=== PATIENT | female | born 1950 | race Caucasian/White ===

== ENCOUNTER → 2023-07-05 17:31 | Outpatient (REF) | payer MEDICARE, SELFPAY | LOC: PAVMRI 17:31 | PROVIDERS: ATTENDING PHYSICIAN Pain Medicine Interventional Pain Medicine; FAMILY PHYSICIAN Family Medicine | DX: M54.16 Radiculopathy, lumbar region (principal) | CPT/HCPCS: 72148 ==

== ENCOUNTER → 2024-06-26 12:12 | Outpatient (REF) | payer MEDICARE, SELFPAY | LOC: HWRCS 12:12 | PROVIDERS: ATTENDING PHYSICIAN Internal Medicine Cardiovascular Disease; FAMILY PHYSICIAN Family Medicine | DX: R07.9 Chest pain, unspecified (principal) | CPT/HCPCS: 78452; 93017; A9500; J2785 ==

== ENCOUNTER → 2024-06-29 13:43 | Outpatient (REF) | payer MEDICARE, SELFPAY | LOC: RCS 13:43 | PROVIDERS: ATTENDING PHYSICIAN Internal Medicine Cardiovascular Disease; FAMILY PHYSICIAN Family Medicine | DX: R06.02 Shortness of breath (principal) | CPT/HCPCS: 93306 ==

== ENCOUNTER 2024-08-04 13:30 | Day surgery (SDC) | payer MEDICARE, SELFPAY | END 2024-08-04 13:45 | disposition home or self-care (01) | LOC: GI 13:30 | PROVIDERS: ATTENDING PHYSICIAN Specialist | DX: R10.13 Epigastric pain (principal); R07.89 Other chest pain; K31.7 Polyp of stomach and duodenum; K22.89 Other specified disease of esophagus; K31.89 Other diseases of stomach and duodenum; K29.50 Unspecified chronic gastritis without bleeding; K31.A11 Gastric intestinal metaplasia without dysplasia, involving the antrum | CPT/HCPCS: 43239; 88305; 88342 ==

== ENCOUNTER 2024-09-21 09:39 | Emergency (ER) | payer MEDICARE, SELFPAY ==
[2024-09-21] VITALS (8 sets, daily range): BP systolic 96–125; BP diastolic 47–67; BMI 33.3
--- NOTE | 2024-09-21 10:07 | EDRN ---
Dr. Treviño in to see pt at this time.
--- NOTE | 2024-09-21 10:22 | ED.GENMED ---
History of Present Illness
General
Chief Complaint: Bowel Problem
Time Seen by Provider: 09/21/24 09:56
History of Present Illness
History of Present Illness:
73-year-old female history of hypertension, hysterectomy presenting with constipation starting 09/10. Patient states that she typically has a bowel movement every day but has not had a normal bowel movement since 09/10. Patient reports nausea,
diffuse abdominal pain, and feeling bloated. Patient states that she tried taking Dulcolax on 09/18 with no relief. Patient states that she discussed with GI office who recommended taking MiraLAX twice daily which she did on 09/19, no relief so she
took magnesium citrate yesterday with no improvement. Patient states that she feels like she has been passing less gas for the past 2 days. Patient states that she has small eduard few days ago but none since. Patient denies feeling like she has
stool in her rectum that she cannot pass. Patient states that she feels bloated. Patient states that when she is drinking water for the past 2 days she felt like she was able to swallow but then it would come back out. Patient denies any episodes
of vomiting without drinking liquids. Otherwise patient denies chest pain, shortness of breath, or urinary symptoms.
Phy Exam
Physical Exam
Physical Exam:
General: Alert, no acute distress
Head: NCAT
Eyes: clear conjunctiva
Neck: supple
Cardiac: regular rate and rhythm, no murmur
Lungs: clear to auscultation bilaterally. No wheezes, rales, or rhonchi. Speaking full unlabored sentences. No respiratory distress.
Abdomen: soft, distended diffusely tender. no rebound or guarding.
MSK: no lower extremity edema bilaterally. No deformity
Skin: warm, dry
Neuro: Alert and oriented x3. no focal deficits
Course
Orders/Labs/Results
Orders:
Orders
09/21/24 10:19
Iohexol [Omnipaque] See Protocol PO NOW STA
09/21/24 10:21
EKG [Electrocardiogram (*1)] Urgent
Reason for Study: Abdominal Pain
CT Abd/pel W Iv And Oral Contr Urgent
Comment:
Reason For Exam: nausea, constipation, r/o bowel obstruction
EKG- Treatment ONCE
0.9% Sodium Chloride 1000 ml [Nss] 1,000 ml IV BOLUS
Ondansetron Injectable [Zofran] 4 mg IV NOW STA
09/21/24 11:12
CBC/With Diff [Complete Blood Count/With Diff] Urgent
CMP [Comprehensive Metabolic Panel] Urgent
Lactate Level [Lactic Acid] Urgent
Lipase Urgent
09/21/24 12:23
Ketorolac [Toradol] 15 mg .ROUTE .STK-MED ONE
09/21/24 12:25
Ketorolac [Toradol] 15 mg IV NOW STA
09/21/24 20:00
Ciprofloxacin HCl [Cipro] 500 mg PO BID
Abnormal Lab Results
09/21/24
11:12
WBC 16.8 H 10^3/uL
(4.8-10.8)
RBC 4.16 L 10^6/uL
(4.20-5.40)
Hct 35.1 L %
(37.0-47.0)
Abs Immat Gran (auto) 0.1 H 10^3/uL
(0-0.05)
Absolute Neuts (auto) 14.6 H 10^3/uL
(1.4-6.5)
Absolute Lymphs (auto) 1.0 L 10^3/uL
(1.2-3.4)
Absolute Monos (auto) 1.1 H 10^3/uL
(0.1-0.6)
Neutrophils % 86.9 H %
(42.2-75.2)
Lymphocytes % 5.8 L %
(20.5-51.1)
Sodium 134 L mmol/L
(135-145)
BUN 33 H mg/dl
(7-17)
Glucose 124 H mg/dl
(70-99)
Lipase 21 L U/L
(23-300)
09/21/24 11:12
09/21/24 11:12
Vital Signs
Initial and Last Documented VS:
Initial Vital Signs
Temp Pulse Resp BP Pulse Ox
98.9 F 96 18 96/66 98
09/21/24 09:44 09/21/24 09:44 09/21/24 09:44 09/21/24 09:44 09/21/24 09:44
Last Documented Vital Signs
Temp Pulse Resp BP Pulse Ox
98.9 F 72 16 101/53 92
09/21/24 09:44 09/21/24 15:00 09/21/24 15:00 09/21/24 15:00 09/21/24 15:00
MDM/Problems Addressed
Differential Diagnosis Includes:
Bowel obstruction, constipation, ABELINO, electrolyte abnormality, fecal impaction, stercoral colitis
MDM/Problems Addressed:
Ct abdomen/pelvis reviewed, shows 1. Acute colitis sigmoid colon as above. While there were large number of colonic diverticula, no focal inflamed diverticulum is clearly identified. Stercoral colitis is also a consideration, however there is
less colonic distention than would be typical for this process. Exact etiology indeterminate. There is trace pericolonic unorganized fluid, no signs of abscess formation. Large volume of liquid stool in the proximal colon.
2. Mild hepatic fatty infiltration.
3. Bilateral renal cortical thinning. Delayed contrast excretion from the kidneys.
WBC 16.8. Otherwise lactate within normal limits, creatinine/electrolytes within normal limits.
On reevaluation, pt reports having a large bowel movement with improvement in abdominal pain/bloating in the ER. Abdomen soft nontender. Discussed results with patient at bedside. Suspect constipation was from taking Carafate which patient has since
discontinued. Offered admission, patient declines and requesting to be discharged home with outpatient GI follow up. Shared decision making. Given patient had bowel movement in ER, abdomen now nontender, tolerating PO with no episodes of vomiting,
reasonable to be discharge with oral cipro and GI follow up. Discussed return precautions including fever, vomiting, worsening abdominal pain. Patient expressed verbal understanding.
*Pulse Oximetry
SaO2: 98
Oxygen Mode of Delivery: Room air
Patient hypoxic: no
*EKG
Interpreted by ED Provider?: Yes (EKG shows normal sinus rhythm at [address] 178 QTc 425 no acute ischemic changes)
*Critical Care Note
Total Time (30-74mins, 75-104mins- exclusive of procedures): Not Applicable
ED Attending Note
-
Portions of this chart may have been created with voice recognition software.� Occasional wrong word or��sound alike� substitutions may have occurred due to the inherent limitations of voice recognition software.
Discharge Plan
Departure
Patient Disposition: Home (Routine Discharge)
Date of Disposition: 09/21/24
Time of Disposition: 16:03
Patient with high blood pressure during this ER visit?: No
Discharge Problem:
Colitis
Instructions: Colitis - Discharge instructions
Prescriptions:
New
ciprofloxacin HCl [Cipro] 500 mg tablet
500 mg PO BID 7 Days Qty: 14 0RF
No Action
multivitamin Tablet
1 tab PO DAILY
amlodipine 10 mg Tablet
10 mg PO DAILY
naproxen 500 mg Tablet
500 mg PO BID
valsartan-hydrochlorothiazide 320-25 mg Tablet
1 tab PO DAILY
vitamin D3-vitamin K2 125-90 mcg Capsule
1 cap PO DAILY
allopurinol 100 mg Tablet
100 mg PO DAILY
Referrals:
Timi Her MD [Family Provider, Family Practice]
Activity Restrictions/Additional Instructions:
Follow up with gastroenterology in 1-2 days
Take cipro twice daily for the next 7 days
Return to the emergency department for fever, persistent vomiting, or new/worsening symptoms
Interventions
Interventions:
*Risk Screen - Suicide Last Done: 09/21/24 09:44
*General Assessment Last Done: 09/21/24 09:44
*Neglect/Abuse Screening Last Done: 09/21/24 09:44
*ED- Fall Risk Assessment Last Done: 09/21/24 09:44
*ED COVID-19 Vaccine History Last Done: 09/21/24 09:44
LN-Tdvryj-Lplbwbjaqt Assessment Last Done: 09/21/24 10:50
Discharge Date and Time
Print Language: SYRIAN
[2024-09-21] MEDS: OMNIPAQUE 50 ML PO (10:59)
--- NOTE | 2024-09-21 11:04 | EDRN ---
Attempted IV accesss x2 w/ out success and IV VAT LULA Abbott was TT'd and is now in room attempting IV access and labs at this time. Pt has started to drink for CT scan at this time.
[2024-09-21 11:20] LABS: Hematocrit 35.1 % (37.0-47.0); Hemoglobin 12.2 g/dL (12.0-16.0); Mean Corp Hgb Conc. 34.8 g/dL (33.0-37.0); Mean Corpuscular Volume 84.4 fL (81.0-99.0); Nucleated Red Blood Cells % 0 %; Platelet Count 257 10^3/uL (130-400); Red Cell Dist. Width 12.1 % (11.5-14.5)
[2024-09-21] MEDS: NSS 1000 IV (11:24)
[2024-09-21] MEDS: ZOFRAN 4 MG IV (11:26)
[2024-09-21 11:47] LABS: ALT (SGPT) 13 U/L (0-35); AST (SGOT) 23 U/L (14-36); Albumin 4.2 g/dl (3.5-5.0); Alkaline Phosphatase 124 U/L (38-126); Blood Urea Nitrogen 33 mg/dl (7-17); Calcium 8.8 mg/dl (8.4-10.2); Carbon Dioxide 26 mmol/L (22-30); Chloride 99 mmol/L (98-107); Estimated Creatinine Clearance 58 ml/min; Glucose 124 mg/dl (70-99); Lipase 21 U/L (23-300); Potassium 4.0 mmol/L (3.5-5.1); Sodium 134 mmol/L (135-145); Total Protein 6.6 g/dl (6.3-8.2); eGFR > 60.00
[2024-09-21] MEDS: TORADOL 15 MG IV (12:27)
--- NOTE | 2024-09-21 12:31 | EDRN ---
Pt repositioned on her R side w/ pillow to her back for comfort at this time w/ additional warm blanket.
--- NOTE | 2024-09-21 15:43 | EDRN ---
Dr. Treviño in room w/ pt at this time.
[2024-09-21] MEDS: CIPRO 500 MG PO (16:24)
== END 2024-09-21 16:35 | disposition home or self-care (01) ==
LOC: EMR 09:39
PROVIDERS: EMERGENCY PHYSICIAN Emergency Medicine; FAMILY PHYSICIAN Family Medicine
DX: K59.00 Constipation, unspecified (principal); K52.9 Noninfective gastroenteritis and colitis, unspecified; I10 Essential (primary) hypertension; K57.30 Diverticulosis of large intestine without perforation or abscess without bleeding; K76.0 Fatty (change of) liver, not elsewhere classified; Z88.1 Allergy status to other antibiotic agents
CPT/HCPCS: 99284; 96375; 96361 ×2; 96374; 74177; 80053; 83605; 83690; 85025; 93005; Q9967